=== PATIENT | male | born 1975 | race Caucasian/White ===

== ENCOUNTER → 2025-01-19 | Outpatient (CLI) | payer OTHER, MEDICAID | LOC: M RAD 15:30 | PROVIDERS: ATTEND Neurological Surgery | DX: M54.2 Cervicalgia (principal) ==

== ENCOUNTER → 2025-02-06 | Outpatient (CLI) | payer MEDICARE, MEDICAID | LOC: M RAD 10:43 | PROVIDERS: ATTEND Neurological Surgery | DX: M54.2 Cervicalgia (principal) ==